=== PATIENT | female | born 1980 | race Two or more races ===

== ENCOUNTER 2025-01-12 12:30 | Day surgery (SDC) | payer MEDICAID, SELFPAY ==
[2025-01-09 09:59] VITALS: BMI 33.5
--- NOTE | 2025-01-09 10:54 | EKG_ITS ---
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
[2025-01-09 11:12] LABS: Collection Type, Urine Clean Catch; RBC,Urine 0 /hpf (0-3); WBC,Urine 0 /hpf (0-5)
[2025-01-09 12:39] LABS: Basophils % (Auto) 0 % (0-2.5); Eosinophils # (Auto) 0.1 Thou/mm3 (0.0-0.5); Eosinophils % (Auto) 2 % (0-10); Hematocrit 36.4 % (36.0-46.0); Hemoglobin 13.2 g/dL (12.0-16.0); Immature Granulocytes % (Auto) 0 % (0-0); Immature Granulocytes Auto 0.02 Thou/mm3 (0.00-0.00); Lymphocytes # (Auto) 1.8 Thou/mm3 (1.0-4.8); Lymphocytes % (Auto) 25 % (10-50); Mean Corpuscular HGB Conc 36.3 g/dl (31.0-37.0); Mean Corpuscular Hemoglobin 31.1 pg (25.0-35.0); Mean Corpuscular Volume 86 fL (80-100); Monocytes # (Auto) 0.5 Thou/mm3 (0.0-0.8); Monocytes % (Auto) 7 % (0-12); Neutrophils # (Auto) 4.8 Thou/mm3 (1.8-7.7); Neutrophils % (Auto) 66 % (37-80); Nucleated Red Blood Cell % 0 /100 WBC (0); Platelet Count 265 Thou/mm3 (140-440); RDW Standard Deviation 39.8 fL (36.4-46.3); Red Blood Count 4.24 Miln/mm3 (4.00-5.20); White Blood Count 7.2 Thou/mm3 (3.6-11.0)
[2025-01-09 12:48] LABS: Partial Thromboplastin Time 27.1 Seconds (22.0-36.0)
[2025-01-09 12:52] LABS: Alanine Aminotransferase 11 U/L (10-49); Albumin, Serum 3.9 gm/dL (3.5-5.0); Albumin/Globulin Ratio 1.7 (1.2-2.2); Alkaline Phosphatase 65 U/L (46-116); Anion Gap 8 (7-16); Aspartate Amino Transferase 13 U/L (0-34); BUN/Creatinine Ratio 13 Ratio (12-20); Bilirubin,Total 0.5 mg/dL (0.3-1.2); Blood Urea Nitrogen 9 mg/dL (9-23); Calcium 8.5 mg/dL (8.3-10.6); Calcium (Corrected) 8.6 mg/dL (8.5-10.1); Carbon Dioxide 29.9 mMol/L (20.0-31.0); Chloride 105 mMol/L (98-107); Creatinine (Component) 0.7 mg/dL (0.6-1.3); Estimated Creatinine Clearance 104.7 mL/min (>60); Globulin 2.3 gm/dL (2.3-3.5); Glucose 65 mg/dL (74-106); Osmolality,Calculated 281 (275-295); Potassium 3.6 mMol/L (3.4-5.1); Sodium 143 mMol/L (136-145); Total Protein 6.2 gm/dL (5.7-8.2); eGFR > 60 See Note
[2025-01-09 13:03] LABS: Bacteria,Urine 1+; Bilirubin,Urine Negative (Negative); Blood,Urine Negative (Negative); Clarity,Urine Clear (Clear/Hazy); Color,Urine Lt-Yellow (Lt Yel-Yel); Glucose, Urine Negative (Negative); Ketones,Urine Negative (Negative); Leukocyte Esterase,Urine Negative (Negative); Nitrite,Urine Negative (Negative); PH,Urine 7.5 (5.0-7.0); Protein,Urine Negative (Neg - Trace); Specific Gravity,Urine 1.012 (1.001-1.035); Squamous Epithelial Cell,Urine 13 /hpf (0-5); Urobilinogen,Urine Negative mg/dL (0.0-1.0)
[2025-01-12] VITALS (8 sets, daily range): BP systolic 117–140; BP diastolic 70–100; PULSE 52–94; RESP 12–20; TEMP 36.3–36.9; O2SAT 97–100; BMI 33.7
--- NOTE | 2025-01-12 17:10 | SUR.PHASEI ---
pt received from OR in recovery bay 5. pt asleep but responds to voice, breathing unlabored on room air. v/s stable. pt dressing to right breast cdi. report received from Dr. Lewis and Fide CHEN.
--- NOTE | 2025-01-12 17:45 | SUR.PHASEII ---
pt able to tolerate oral fluids without difficulty swallowing or nausea/vomiting.
--- NOTE | 2025-01-12 18:25 | SUR.PHASEII ---
pt awake and alert, breathing unlabored on room air. v/s stable. pt dressing to right breast cdi. pt able to ambulate to wheelchair with steady gait. d/c instructions given with mother Giovana in room using diplomatic interpreter/translator Molly Bhat, all questions answered. pt d/c via wheelchair with all belongings.
--- NOTE | 2025-03-13 15:30 | ESOP_ITS ---
Date of Procedure 01/12/25 Pre Op Diagnosis Mass right breast at 12 o'clock position Post Op Diagnosis Same. Procedure Ultrasound-guided localization and excision of lesion in the right breast at 1 o'clock position on 01/12/2025 Findings This patient has a hypoechoic lesion at 12 o'clock position in the right breast that was localized with real-time ultrasound and marked with methylene blue and then it was removed. Procedure Description The patient was interviewed in the preoperative room and site and side were identified. Risk benefits and alternatives were discussed with the patient and informed consent is obtained. After that the patient is taken to the operating room and general anesthesia was administered in a satisfactory manner. The right breast chest abdomen regions were prepped and draped in usual manner. Real-time ultrasound examination is carried out and the lesion is identified and then it is marked with methylene blue. Is also marked on the surface. Local anesthesia 1% lidocaine with epinephrine is used as an adjunct. Curvilinear transverse incision is made over a 12 o'clock position. This was deepened th rough the skin and subcutaneous tissue. The upper and lower flaps are developed. The mass is identified as marked and then it was encircled and removed in its entirety. Hemostasis is achieved. The excision cavity is examined from the inside and there is no other identifiable mass in the wall of the excision cavity. Operative field is thoroughly irrigated with saline solution and breast tissue was approximated with 3-0 Vicryl. Subcutaneous tissue by 3-0 Vicryl interrupted sutures and skin by 4-0 Monocryl subcuticular stitches. Steri-Strips were applied. Patient taught the procedure very well. Complications none. Anesthesia GETA Drains None. Implants None. Pathology / specimen Other (Right breast lesion at 12 o'clock position) Estimated Blood Loss 5 Condition Stable Disposition PACU Surgeon Chad Graves MD Surgical Staff Operation Date: 01/12/25 15:00 Case Staff Anesthesiologist: Chas Lewis RNgreen building design specialist: Irena Kan
== END 2025-01-12 18:25 | disposition home or self-care (01) ==
PROVIDERS: Referring Provider Specialist; Visit Provider Specialist
PROC: (CPT 19301; principal; 2025-01-12 15:00)
DX: D24.1 Benign neoplasm of right breast (principal); Z01.810 Encounter for preprocedural cardiovascular examination; R92.0 Mammographic microcalcification found on diagnostic imaging of breast
CPT/HCPCS: 19120; 36415; 80053; 81001; 85025; 85730; 93005; A4217; A4648; A4649; J0690; J1100; J2704; J2765; J3010; J3490; Q9968